=== PATIENT | male | born 1955 | race Hispanic/Latino ===

== ENCOUNTER 2021-12-16 18:50 | Emergency (ER) | payer OTHER, MEDICARE ==
[~2021-12-16] VITALS: Ht 160 cm; Wt 72.6 kg
[2021-12-16 19:33] LABS: BASOPHILS % (AUTO) 0.6 % (0.0-5.0); EOSINOPHILS % (AUTO) 1.5 % (0.0-8.0); HEMATOCRIT 38.6 % (42-54); LYMPHOCYTES % (AUTO) 43.9 % (21.0-51.0); MEAN CORPUSCULAR HEMOGLOBIN 26.8 pg (27.0-33.0); MEAN CORPUSCULAR HGB CONC 33.9 g/dL (32.0-36.0); MEAN CORPUSCULAR VOLUME 79.1 fL (79-99); MONOCYTES % (AUTO) 8.1 % (3.0-13.0); NEUTROPHILS % (AUTO) 45.7 % (40.0-77.0); PLATELET COUNT (AUTO) 304 K/uL (130-400); RED BLOOD CELL COUNT(AUTO) 4.88 MIL/uL (4.50-6.20); WHITE BLOOD COUNT (AUTO) 12.8 K/uL (4.8-10.8)
[2021-12-16 19:46] LABS: CREATININE 0.7 mg/dL (0.5-1.5)
[2021-12-16 19:51] LABS: ALBUMIN 3.3 g/dL (3.5-5.0); BILIRUBIN,TOTAL 0.4 mg/dL (0.2-1.0); TOTAL PROTEIN, SERUM 7.1 g/dL (6.0-8.3)
[2021-12-16] MEDS ORDERED: IPRATROPIUM/ALBUTEROL SULFATE 3 ML SOLUTION IH ONE ×2 (19:58→20:00)
[2021-12-16] MEDS ORDERED: SOLU-MEDROL 125MG VIAL IVP ONE (20:00)
[2021-12-16] MEDS ORDERED: AZITHROMYCIN 250 MG TABLET PO ONE (20:00)
[2021-12-16 20:06] LABS: B-TYPE NATRIURETIC PEPTIDE 69 pg/mL (0-100)
[2021-12-16 20:55] VITALS: BP 119/66
[2021-12-16] MEDS ORDERED: AZIT1PAC7 PO (21:15)
[2021-12-16] MEDS ORDERED: PRED20TA3 PO (21:15)
== END 2021-12-16 21:28 | disposition home or self-care (01) ==
LOC: EDH 18:50
DX: J44.1 Chronic obstructive pulmonary disease with (acute) exacerbation (principal); E11.9 Type 2 diabetes mellitus without complications; E78.00 Pure hypercholesterolemia, unspecified; I10 Essential (primary) hypertension; F20.9 Schizophrenia, unspecified
CPT/HCPCS: 36415; 71045; 80053; 82550; 83880; 84484; 85025; 93005; 94640; 96374; 99285; J2930